=== PATIENT | female | born 1990 | race Caucasian/White ===

== ENCOUNTER 2018-08-30 03:58 | Emergency (ER) | payer SELFPAY ==
[~2018-08-30] VITALS: Ht 160 cm; Wt 64.0 kg
[2018-08-30] MEDS ORDERED: SODIUM CHLORIDE 0.9% 1,000 ML IV ONE ×2 (04:23→07:30)
[2018-08-30] MEDS ORDERED: ONDANSETRON HCL 4MG/2ML INJ IV STA (04:23)
[2018-08-30] MEDS ORDERED: NALOXONE HCL 1 MG/ML 2ML VIAL IM ONE (04:30)
[2018-08-30 05:08] LABS: BASOPHILS % 0.1 % (0.0-2.0); HEMATOCRIT. 38.2 % (36.0-48.0); HEMOGLOBIN. 12.5 g/dL (12.0-16.0); LYMPHOCYTES % 7.5 % (20.0-50.0); MEAN CORPUSCULAR HEMOGLOBIN 30.2 pg (28.0-32.0); MEAN CORPUSCULAR VOLUME 92.3 fL (81.0-99.0); MEAN PLATELET VOLUME 7.7 fl (7.4-10.4); MONOCYTES % 6.3 % (2.0-8.0); NEUTROPHILS % 86.1 % (40.0-76.0); PLATELET 232 x1000/uL (130-400); RED BLOOD CELL COUNT 4.14 mill/uL (4.2-5.4); RED CELL DISTRIBUTION WIDTH 13.8 % (11.6-14.6)
[2018-08-30 05:15] LABS: CHLORIDE 106 mEq/L (98-107)
[2018-08-30 05:18] LABS: *AMPHETAMINES SCREEN URINE NEGATIVE (NEGATIVE); *BARBITURATES SCREEN URINE NEGATIVE (NEGATIVE)
[2018-08-30 05:19] LABS: *BENZODIAZEPINES SCREEN URINE NEGATIVE (NEGATIVE); CANNABINOID URINE SCREEN NEGATIVE (NEGATIVE); METHADONE URINE SCREEN NEGATIVE (NEGATIVE); PHENCYCLIDINE URINE SCREEN NEGATIVE (NEGATIVE)
[2018-08-30 05:26] LABS: *COCAINE SCREEN URINE PRESUMTIVE POSITIVE (NEGATIVE); OPIATES URINE SCREEN PRESUMTIVE POSITIVE (NEGATIVE)
[2018-08-30 09:13] VITALS: BP 112/68
== END 2018-08-30 09:57 | disposition home or self-care (01) ==
LOC: ER 03:58
DX: G93.40 Encephalopathy, unspecified (principal)
CPT/HCPCS: 36415; 70450; 71045; 80053; 80305; 81025; 82962; 85025; 93005; 96361; 96372; 96374; 99284; J2310; J2405; J7030

== ENCOUNTER 2019-03-21 10:41 | Emergency (ER) | payer SELFPAY ==
[~2019-03-21] VITALS: Ht 160 cm; Wt 64.0 kg
[2019-03-21 11:28] VITALS: BP 163/99
[2019-03-21] MEDS ORDERED: ONDANSETRON 4MG ODT PO ONE (14:00)
[2019-03-21] MEDS ORDERED: TETANUS, DIPHTHERIA, PERTUSSIS VAC/PF 0.5ML (>7YR OLD) IM ONE (14:00)
[2019-03-21] MEDS ORDERED: LIDOCAINE 1%/EPI 1:100,000 10 ML VIAL IJ ONE (14:00)
[2019-03-21] MEDS ORDERED: HYDROCODONE/ACETAMINOPHEN 5/325MG TABLET PO ONE (14:00)
== END 2019-03-21 15:45 | disposition home or self-care (01) ==
LOC: EDBD → ER 10:41
DX: L02.31 Cutaneous abscess of buttock (principal); Z23 Encounter for immunization
CPT/HCPCS: 10061; 81025; 87070; 87077; 87205; 90471; 90715; 99284; J3490; Q0162

== ENCOUNTER 2019-03-23 11:03 | Emergency (ER) | payer MEDICAID ==
[~2019-03-23] VITALS: Ht 160 cm; Wt 55.0 kg
[2019-03-23 11:22] VITALS: BP 128/101
== END 2019-03-23 11:45 | disposition home or self-care (01) ==
LOC: EDBD 11:03 → ER 11:03
DX: Z48.00 Encounter for change or removal of nonsurgical wound dressing (principal); R03.0 Elevated blood-pressure reading, without diagnosis of hypertension; L02.31 Cutaneous abscess of buttock
CPT/HCPCS: 99282